=== PATIENT | female | born 1990 | race Caucasian/White ===

== ENCOUNTER 2019-05-06 17:11 | Emergency (ER) | payer MEDICAID, OTHER ==
[~2019-05-06] VITALS: Ht 175.3 cm; Wt 69.4 kg
[~2019-05-06 17:11] MED LIST: ALPR0.254 PO; OXYC-411 PO
[2019-05-06 17:45] VITALS: BP 116/57
--- NOTE | 2019-05-06 19:30 | RAD ---
Exam: Left humerus 2 views INDICATION: Fall TECHNIQUE: Frontal and lateral views of the left humerus Comparisons: None FINDINGS: Bone mineralization is normal. No acute or healed fractures. Soft tissues are unremarkable. Joint spaces are well-maintained. IMPRESSION: No acute osseous abnormality. Electronically signed by: Pj Banda MD (05/06/2019 7:26 PM) [facility]
--- NOTE | 2019-05-06 19:32 | RAD ---
Exam: Lumbar spine 3 views INDICATION: Fall TECHNIQUE: Frontal and lateral views the lumbar spine with spot magnification view of the lumbosacral junction. Comparisons: None FINDINGS: Vertebral body heights and alignment are well-maintained. Subtle linear lucency at the distal aspect of the left 12th rib. No significant spondylotic change in the lumbar spine. Visualized paraspinal soft tissues are unremarkable. IMPRESSION: Subtle linear lucency at the distal aspect of the left 12th rib, may relate to a mildly displaced fracture. Correlate with point tenderness. Electronically signed by: Pj Banda MD (05/06/2019 7:29 PM) [facility]
--- NOTE | 2019-05-06 19:35 | RAD ---
Exam: Pelvis with right hip 2 views INDICATION: Fall TECHNIQUE: Frontal view of pelvis with frontal and frog-leg lateral views of the right hip Comparisons: None FINDINGS: Curvilinear lucency along the posterior aspect of the acetabulum. Soft tissues are unremarkable. Joint spaces are well-maintained. Bone mineralization is normal. IMPRESSION: Suspect fracture at the posterior aspect of the right acetabulum. Correlate for history of dislocation. Recommend CT for further evaluation. Electronically signed by: Pj Banda MD (05/06/2019 7:32 PM) [facility]
[2019-05-06] MEDS ORDERED: HYDROcodone/APAP 5/325MG 1 TAB TABLET PO ONE (20:00)
--- NOTE | 2019-05-06 20:09 | RAD ---
Examination: CT pelvis without contrast HISTORY: History of fall COMPARISON: None available TECHNIQUE: Axial CT images of the pelvis were performed without contrast. Coronal and sagittal reformats are performed Exposure: One or more of the following individualized dose reduction techniques were utilized for this examination: 1. Automated exposure control 2. Adjustment of the mA and/or kV according to patient size 3. Use of iterative reconstruction technique FINDINGS: The bilateral femoral heads within the acetabula. There is a well-formed bone density identified in the posterior acetabular region measuring 2.8 cm in CC dimension with sclerotic borders, age indeterminate posterior acetabular fracture. The urinary bladder is mildly distended. A small metallic density identified in the medial aspect of the right thigh. IMPRESSION: 1. Well-formed bone density identified in the posterior acetabular region measuring 2.8 cm in CC dimension with sclerotic borders, age indeterminate posterior acetabular fracture, possibly old fracture. Correlate clinically. Electronically signed by: Ezequiel Honeycutt MD (05/06/2019 8:06 PM) [facility]
--- NOTE | 2019-05-06 20:49 | RAD ---
Exam: PA chest with left ribs INDICATION: Pain TECHNIQUE: Frontal view of the chest with frontal and oblique views of the left ribs Comparisons: Radiograph same day FINDINGS: The cardiomediastinal silhouette and pulmonary vessels are within normal limits. The lung and pleural spaces are clear. No displaced fractures are identified. IMPRESSION: 1. No acute cardiopulmonary process. 2. No displaced fractures are identified. The previously described 12th rib fracture is not apparent on the current study. Electronically signed by: Pj Banda MD (05/06/2019 8:46 PM) [facility]
[2019-05-06] MEDS ORDERED: DICL50TA2 PO (21:23)
[2019-05-06] MEDS ORDERED: CYCL10TA2 PO (21:23)
[2019-05-06] MEDS ORDERED: HYDR-3164 PO (21:23)
--- NOTE | 2019-05-06 21:23 | PHYS DOC ---
Past Medical History Past Medical History: No Pertinent History Past Surgical History: Other Additional Past Surgical Histo: LIPO Alcohol Use: None Drug Use: None Adult General Chief Complaint Chief Complaint: MECHANICAL FALL HPI HPI Patient is a 28 year old female with a previous history of right hip fracture, right hip dislocation who presents to the ED today complaining of 8 out of 10 right hip pain, left humerus pain that began after she fell. Patient states she was at work early this morning, she states she climbed on a countertop using her stool, she states when she tried getting down from the countertop she stepped on the stool and fell down on her buttocks. Patient denies any loss of consciousness. Patient describes the pain as sharp and constant worse on weight- bearing to the right lower extremity. Review of Systems Review of Systems Constitutional: Denies fever or chills [] Eyes: Denies change in visual acuity, redness, or eye pain [] HENT: Denies nasal congestion or sore throat [] Respiratory: Denies cough or shortness of breath [] Cardiovascular: No additional information not addressed in HPI [] GI: Denies abdominal pain, nausea, vomiting, bloody stools or diarrhea [] : Denies dysuria or hematuria [] Musculoskeletal: Reports right hip pain Integument: Denies rash or skin lesions [] Neurologic: Denies headache, focal weakness or sensory changes [] Endocrine: Denies polyuria or polydipsia [] All other systems were reviewed and found to be within normal limits, except as documented in this note. Current Medications Current Medications Current Medications Medications (Trade) Dose Ordered Sig/Abiodun Start Time Stop Time Status Last Admin Dose Admin Acetaminophen/ Hydrocodone Bitart (Lortab 5/325) 2 tab 1X ONCE 05/06/19 20:00 05/06/19 20:01 DC 05/06/19 19:49 2 TAB Allergies Allergies Allergies Coded Allergies Type Severity Reaction Last Updated Verified latex Allergy Unknown 12/09/15 Yes nickel Allergy Unknown 12/09/15 Yes Physical Exam Physical Exam Constitutional: Well developed, well nourished, no acute distress, non-toxic appearance. [] HENT: Normocephalic, atraumatic, bilateral external ears normal, oropharynx moist, no oral exudates, nose normal. [] Eyes: PERRLA, EOMI, conjunctiva normal, no discharge. [] Neck: Normal range of motion, no tenderness, supple, no stridor. [] Cardiovascular:Heart rate regular rhythm, no murmur [] Lungs & Thorax: Bilateral breath sounds clear to auscultation [] Abdomen: Bowel sounds normal, soft, no tenderness, no masses, no pulsatile masses. [] Skin: Warm, dry, no erythema, no rash. [] Back: No tenderness, no CVA tenderness. [] Extremities: No tenderness, no cyanosis, no clubbing, ROM intact, no edema. [] Neurologic: Alert and oriented X 3, normal motor function, normal sensory function, no focal deficits noted. [] Psychologic: Affect normal, judgement normal, mood normal. [] Current Patient Data Vital Signs Vital Signs Date Time Temp Pulse Resp B/P (MAP) Pulse Ox O2 Delivery O2 Flow Rate FiO2 05/06/19 19:49 12 97 Room Air 05/06/19 17:45 98.0 60 116/57 (76) 98.0 Lab Values Laboratory Tests Test 05/06/19 18:15 POC Urine HCG, Qualitative Hcg negative (Negative) EKG EKG [] Radiology/Procedures Radiology/Procedures []PROCEDURE: RIBS LEFT AND PA CHEST Exam: PA chest with left ribs INDICATION: Pain TECHNIQUE: Frontal view of the chest with frontal and oblique views of the left ribs Comparisons: Radiograph same day FINDINGS: The cardiomediastinal silhouette and pulmonary vessels are within normal limits. The lung and pleural spaces are clear. No displaced fractures are identified. IMPRESSION: 1. No acute cardiopulmonary process. 2. No displaced fractures are identified. The previously described 12th rib fracture is not apparent on the current study. Electronically signed by: Pj Dai MD (05/06/2019 8:46 PM) [facility] DICTATED and SIGNED BY: PJ DAI MD DATE: 05/06/192045 PROCEDURE: CT PELVIS WO CONTRAST Examination: CT pelvis without contrast HISTORY: History of fall COMPARISON: None available TECHNIQUE: Axial CT images of the pelvis were performed without contrast. Coronal and sagittal reformats are performed Exposure: One or more of the following individualized dose reduction techniques were utilized for this examination: 1. Automated exposure control 2. Adjustment of the mA and/or kV according to patient size 3. Use of iterative reconstruction technique FINDINGS: The bilateral femoral heads within the acetabula. There is a well-formed bone density identified in the posterior acetabular region measuring 2.8 cm in CC dimension with sclerotic borders, age indeterminate posterior acetabular fracture. The urinary bladder is mildly distended. A small metallic density identified in the medial aspect of the right thigh. IMPRESSION: 1. Well-formed bone density identified in the posterior acetabular region measuring 2.8 cm in CC dimension with sclerotic borders, age indeterminate posterior acetabular fracture, possibly old fracture. Correlate clinically. Electronically signed by: Ezequiel Honeycutt MD (05/06/2019 8:06 PM) [facility] DICTATED and SIGNED BY: EZEQUIEL HONEYCUTT MD DATE: 05/06/192005 PROCEDURE: HIP RIGHT 2V WITH PELVIS Exam: Pelvis with right hip 2 views INDICATION: Fall TECHNIQUE: Frontal view of pelvis with frontal and frog-leg lateral views of the right hip Comparisons: None FINDINGS: Curvilinear lucency along the posterior aspect of the acetabulum. Soft tissues are unremarkable. Joint spaces are well-maintained. Bone mineralization is normal. IMPRESSION: Suspect fracture at the posterior aspect of the right acetabulum. Correlate for history of dislocation. Recommend CT for further evaluation. Electronically signed by: Pj Dai MD (05/06/2019 7:32 PM) [facility] DICTATED and SIGNED BY: PJ DAI MD DATE: 05/06/191931 PROCEDURE: HUMERUS LEFT Exam: Left humerus 2 views INDICATION: Fall TECHNIQUE: Frontal and lateral views of the left humerus Comparisons: None FINDINGS: Bone mineralization is normal. No acute or healed fractures. Soft tissues are unremarkable. Joint spaces are well-maintained. IMPRESSION: No acute osseous abnormality. Electronically signed by: Pj Dai MD (05/06/2019 7:26 PM) [facility] DICTATED and SIGNED BY: PJ DAI MD DATE: 05/06/191925 PROCEDURE: LUMBAR SPINE 2-3V Exam: Lumbar spine 3 views INDICATION: Fall TECHNIQUE: Frontal and lateral views the lumbar spine with spot magnification view of the lumbosacral junction. Comparisons: None FINDINGS: Vertebral body heights and alignment are well-maintained. Subtle linear lucency at the distal aspect of the left 12th rib. No significant spondylotic change in the lumbar spine. Visualized paraspinal soft tissues are unremarkable. IMPRESSION: Subtle linear lucency at the distal aspect of the left 12th rib, may relate to a mildly displaced fracture. Correlate with point tenderness. Electronically signed by: Pj Dai MD (05/06/2019 7:29 PM) [facility] DICTATED and SIGNED BY: PJ DAI MD DATE: 05/06/191928 Course & Med Decision Making Course & Med Decision Making Pertinent Labs and Imaging studies reviewed. (See chart for details) This is a 28-year-old female patient presenting to the ED today with low back pain and right hip pain after falling, patient also complaining of left humerus pain. Left humerus x-rays interpreted by radiologist are negative for any acute findings. Lumbar spine x-rays were noted for possible 12th rib fracture, right hip x-rays were noted for possible acetabulum fracture. CT of the pelvis was obtained which reported the fracture on the acetabulum is likely chronic. Patient reports previous history of right hip fracture/dislocation. Patient is walking with no difficulties. Left rib x-rays including chest x-ray were negative for any fractures. Results given to patient, follow-up information provided. Dragon Disclaimer Dragon Disclaimer This electronic medical record was generated, in whole or in part, using a voice recognition dictation system. Departure Departure Impression: Primary Impression: Contusion of right hip Additional Impressions: Lumbar contusion Contusion of left upper arm Disposition: 01 HOME, SELF-CARE Condition: STABLE Referrals: UNKNOWN PCP NAME (PCP) GUCCI JARRETT II, MD Follow up in one week Patient Instructions: Contusion, [id number], Fall Prevention and Home Safety Additional Instructions: You were evaluated in the emergency room for pain after falling. Your x-rays were negative for any acute findings. Please contact the provided orthopedic doctor and follow-up as soon as possible. Scripts Diclofenac Potassium (DICLOFENAC POTASSIUM) 50 Mg Tablet 1 TAB PO BID, #20 TAB 0 Refills Prov: ARIELMistyVEL BRENDA 05/06/19 Cyclobenzaprine Hcl (CYCLOBENZAPRINE HCL) 10 Mg Tablet 1 TAB PO TID, #30 TAB Prov: VEL MERRITT APRN 05/06/19 Hydrocodone/Apap 5-325 (NORCO 5-325 TABLET) 1 Each Tablet 1 TAB PO Q6HRS, #8 TAB Prov: VEL MERRITT APRN 05/06/19 Problem Qualifiers Primary Impression: Contusion of right hip Encounter type: initial encounter Qualified Codes: S70.01XA - Contusion of right hip, initial encounter Additional Impressions: Lumbar contusion Encounter type: initial encounter Qualified Codes: S30.0XXA - Contusion of lower back and pelvis, initial encounter Contusion of left upper arm Encounter type: initial encounter Qualified Codes: S40.022A - Contusion of left upper arm, initial encounter VEL MERRITT APRN May 06, 2019 21:23
== END 2019-05-06 21:27 | disposition home or self-care (01) ==
LOC: ER 17:11
DX: S70.01XA Contusion of right hip, initial encounter (principal); S30.0XXA Contusion of lower back and pelvis, initial encounter; S40.022A Contusion of left upper arm, initial encounter; Z91.040 Latex allergy status; Z88.8 Allergy status to other drugs, medicaments and biological substances; W08.XXXA Fall from other furniture, initial encounter; Y93.39 Activity, other involving climbing, rappelling and jumping off; Y92.69 Other specified industrial and construction area as the place of occurrence of the external cause; Y99.0 Civilian activity done for income or pay
CPT/HCPCS: 71101; 72100; 72192; 73060; 73502; 81025; 99284